=== PATIENT | female | born 1990 | race Caucasian/White ===

== ENCOUNTER 2017-08-20 12:32 | Emergency (ER) | payer OTHER ==
[~2017-08-20] VITALS: Ht 170.2 cm; Wt 95.8 kg
[~2017-08-20 12:32] MED LIST: AMOXICILLIN500 MG PO; HUMALOG MI100 UNIT/3 SC; HUMALOG100 UNIT/2 SC; HYDROCODON-ACE1 EAC7 PO; IBUPROFEN800 MG PO; KEFLEX250 MG PO; LABETALOL HCL100 MG PO; MEDROXYPRO150 MG/1 M IM; METFORMIN HCL1000 MG PO; METFORMIN HCL500 MG PO; MOBIC7.5 MG PO; MOTRIN600 MG PO; NOVOLOG PE100 UNITS/ SC; PRENATAL TABLE1 EAC3 PO; PRENATAL VITAM1 EAC4 PO; VITAMIN D2000 UNI1 PO; ZOFRAN ODT4 MG PO; ZOFRAN4 MG PO
[2017-08-20 15:59] VITALS: BP 156/92
== END 2017-08-20 16:33 | disposition home or self-care (01) ==
LOC: EME 12:32
DX: O03.9 Complete or unspecified spontaneous abortion without complication (principal); E11.9 Type 2 diabetes mellitus without complications; Z79.4 Long term (current) use of insulin; F32.9 Major depressive disorder, single episode, unspecified; F17.200 Nicotine dependence, unspecified, uncomplicated
CPT/HCPCS: 76801; 84702; 99281; 99283